=== PATIENT | female | born 1935 | race Caucasian/White ===

== ENCOUNTER 2016-06-18 15:36 | Inpatient (IN) | payer MEDICARE ==
[~2016-06-18] VITALS: Ht 172.7 cm; Wt 92.9 kg
[~2016-06-18 15:36] MED LIST: ALEV220C; ASPI-110 PO; LOSA25TA PO; LYRI75CA PO; MULT1CHW70
[2016-06-19] MEDS ORDERED: SODIUM CHLORID 0.9% 500 ML INJ 500 ML IV ONE (12:00)
[2016-06-19] MEDS ORDERED: PHENYLEPH/NS 1000 MCG/10 ML SYR IV ONE (12:00)
[2016-06-19] MEDS ORDERED: ONDANSETRON HCL 4 MG/2 ML VIAL IV PUSH ONE (12:00)
[2016-06-19] MEDS ORDERED: LACTATED RINGER'S 1000 ML INJ 1,000 ML IV ONE (12:00)
[2016-06-19] MEDS ORDERED: NEOSTIGMINE 3 MG/3 ML SYR IV ONE (12:00)
[2016-06-19] MEDS ORDERED: SODIUM CHLOR 0.9% 250 ML INJ 250 ML IV ONE (12:00)
[2016-06-19] MEDS ORDERED: PROPOFOL 200 MG/20 ML AMP IV ONE (12:00)
[2016-06-19] MEDS ORDERED: ePHEDrine/NS 25 MG/5 ML SYR IV ONE (12:00)
[2016-06-19 12:50] VITALS: BP 188/79; PULSE 73; RESP 16; TEMP 98.1; O2SAT 99
[2016-06-19] MEDS ORDERED: red rice (12:50)
[2016-06-19] MEDS ORDERED: CO Q10CA (12:51)
[2016-06-19] MEDS ORDERED: THROMBIN (TOPICAL) 5,000 UNIT VIAL ONE ×2 (13:02→13:13)
[2016-06-19] MEDS ORDERED: GELFOAM SIZE 100 ONE (13:02)
[2016-06-19] MEDS ORDERED: LIDOCAINE 1%/EPINEPHrine 1:100,000 SOLN 30 ML VIAL ONE (13:04)
[2016-06-19] MEDS ORDERED: BUPIVACAINE HCL PF 0.5% 30 ML VIAL ONE (13:13)
[2016-06-19] MEDS ORDERED: GENTAMICIN SULFATE 80 MG/2 ML VIAL ONE (13:14)
[2016-06-19] MEDS ORDERED: VANCOMYCIN HCL 1000 MG VIAL ONE (13:45)
[2016-06-19] MEDS ORDERED: ceFAZolin 2 GM PREMIX 50 ML ONE (13:45)
[2016-06-19] MEDS ORDERED: SODIUM CHLOR 0.9% 250 ML INJ 250 ML ONE (13:48)
[2016-06-19] MEDS ORDERED: SODIUM CHLORID 0.9% 500 ML IV SCH (14:00)
[2016-06-19] MEDS ORDERED: INSULIN HUMAN REGULAR 1,000 UNITS/10 ML VIAL SQ PRN (14:00)
[2016-06-19] MEDS ORDERED: METOPROLOL TARTRATE 25 MG TAB PO PRN (14:00)
[2016-06-19] MEDS ORDERED: LACTATED RINGER'S 1000 ML IV SCH (14:00)
[2016-06-19] MEDS ORDERED: ACETAMINOPHEN 1000 MG/100 ML VIAL IV ONE (14:15)
[2016-06-19] MEDS ORDERED: ARTIFICIAL TEARS OPTH OINT 3.5 APPLIC/3.5 GM TUBO ONE (14:16)
[2016-06-19] MEDS ORDERED: fentaNYL CITRATE 250 MCG/5 ML AMP ONE ×2 (14:16→19:56)
[2016-06-19] MEDS ORDERED: MIDAZOLAM HCL 2 MG/2 ML VIAL ONE (14:16)
[2016-06-19 17:55] LABS: BLOOD GAS BASE EXCESS -1.1 mmol/L (-2-2); BLOOD GAS CARBOXYHEMOGLOBIN 1.6 % (0-4); BLOOD GAS HCO3 23 mmol/L (22-26); BLOOD GAS METHEMOGLOBIN 1.1 % (0-2); BLOOD GAS O2 HGB SATURATION 97 % (90-100); BLOOD GAS OXYGEN CONTENT 15.2 Vol % (12.0-20.0); BLOOD GAS PCO2 36 mmHg (38-42); BLOOD GAS PO2 246 mmHg (61-120); BLOOD GAS TOTAL HGB 10.7 G/DL (12.0-16.0); CRITICAL VALUE NO; DRAW SITE ALINE; OXYGEN DEVICE O.R.; STAT YES; TEMP CORR TO 98.6
[2016-06-19 18:35] LABS: BLOOD GAS BASE EXCESS -0.9 mmol/L (-2-2); BLOOD GAS CARBOXYHEMOGLOBIN 1.7 % (0-4); BLOOD GAS HCO3 23 mmol/L (22-26); BLOOD GAS O2 HGB SATURATION 97 % (90-100); BLOOD GAS OXYGEN CONTENT 14.7 Vol % (12.0-20.0); BLOOD GAS PCO2 37 mmHg (38-42); BLOOD GAS PO2 243 mmHg (61-120); BLOOD GAS TOTAL HGB 10.4 G/DL (12.0-16.0); CRITICAL VALUE NO; DRAW SITE ALINE; FIO2 59 %; OXYGEN DEVICE O.R. GAS; STAT YES; TEMP CORR TO 98.6
[2016-06-19 18:43] LABS: HEMATOCRIT 30.6 % (35.0-46.0); REVIEW FLAG FINAL
[2016-06-19] MEDS ORDERED: NALOXONE HCL 0.4 MG/ML AMP IV PRN (19:30)
[2016-06-19] MEDS ORDERED: diphenhydrAMINE HCL 50 MG/ML VIAL IV PRN (19:30)
[2016-06-19] MEDS ORDERED: MORPHINE SULFATE 4 MG/ML INJ IV PUSH PRN ×2 (19:30)
[2016-06-19] MEDS ORDERED: ACETAMINOPHEN 325 MG TAB PO PRN (19:30)
[2016-06-19] MEDS ORDERED: SODIUM CHLORIDE 0.9% FLUSH 5 ML FLUSH IVF PRN (19:30)
--- NOTE | 2016-06-19 19:31 | PD.OP ---
Operative Report Date of Surgery: Jun 19, 2016 Preoperative Diagnosis: L3-4, L4-5 spondylolisthesis causing severe secondary stenosis Postoperative Diagnosis: L3-4, L4-5 spondylolisthesis causing severe secondary stenosis Procedure: L3-4, L4-L5 laminectomy, interbody arthrodhesis using PEEK cage and autologous bone graft, L3-4, L4-L5 instrumental fixation using transpedicular screws and rods, L3-4, L4-L5 posterolateral fusion using autologous bone graft and demineralized bone matrix. Microsurgical dissection Anesthesia: general Surgeon: Tim Loo Proof Coins Inspector(s): raymond munoz Operation and Findings: INDICATIONS FOR THE SURGICAL PROCEDURE Mr Cheng is a 81 year-old female who presented with intractable mechanical back pain and purvi evidence of L4 and L5 lower extremity radiculopathy. She had spondylolisthesis and severe stenosis, and failed maximum nonsurgical management including multiple modalities of conservative treatment as well as pain management interventions by an interventional pain specialist. A surgical decompression and arthrodhesis were indicated as a last resort. The [id number] details of the procedure, indications, alternatives, risks and potential complications were fully discussed with the patient. The patient fully understood. All the questions were answered. No guarantees were given. He voiced requesting the procedure and provided informed consents. He was offered the alternative of delaying the procedure and continuing with nonsurgical management. DETAILS OF THE SURGICAL PROCEDURE Prior to the procedure, the procedure, risks, and potential complications revisited with the patient. Placement of electrodes for intraoperative neurophysiological monitoring was completed. The patient was taken to the operative room, and following induction of general anesthesia, endotracheal intubation was performed. A Ngo catheter, bilateral ASAF hose and sequential compression devices were placed and kept throughout the procedure. The patient was positioned prone, over a Malcolm table over a bolsters. All pressure in the preoperative surgical holding room points were carefully padded with eggcrate and gel mattress. The eyes were tapped shut after ointment was applied by the anesthesiologist to prevent corneal abrasion. A Tomasa hugger was placed over the expossed lower body to maintain control of the core body temperature. The electrophysiological team placed the needles and electrodes in their proper location and baseline SSEP's and motor evoked potentials were registered. The entrance to each pedicles was marked using a C arm. The lumbar region was prepped and draped in the usual sterile fashion. The surgical procedure was performed in several steps as follow: SURGICAL APPROACH Once the patient was positioned, a localizing cross-table lateral and AP x-ray was performed with a C-arm. Two paramedian small incisions were outlined on the skin approximately 3cm from the midline. The skin incisions were made with a # 10 blade. Small bleeders were controlled with the cautery. The dissection was then carried out into deeper planes and through the thoracolumbar fascia with a Bovie. The intermuscular septum was identified and the muscles were blunted dissected along the septum. The facets and transverse process of L3-4, L4,5 were exposed and the proper anatomical landmarks were identidied. A microsurgical self-retaining retractor was placed on the incision, and a localizing lateralizing cross-table x-ray was performed with an instrument underneath a lamina of the lumbar spine. INSTRUMENTAL FIXATION At this point in the procedure, placement of bilateral transpedicular screws was necessary for stabilization of the spine. Initially, the entry point for the screw was selected anatomically at the junction of the facet, with the transverse process, and the pars interarticularis at L3-4, L4,5. This was started with a Giamshetti needle, followed by the use of K wire. A tap was used to create the threads for the screws. Finally bilateral transpedicular screws were carefully placed bilaterally at L3, L4, and L5 under fluoroscopic visualization. An appropriate purchase was achieved with all screws. The position of each screw was assessed anatomically with an AP, lateral, oblique Xrays. An intraoperative scan view of the spine was then performed using the iso -centric c-arm. Each screw was then assessed electrophysiologically stimulating each screw with a nerve stimulator. SURGICAL DECOMPRESSION There was significant mass effect with compression of the neural structures. In order to relieve neural compression, it was necessary to perform a decompressive laminectomy, with decompression of the spinal canal and bilateral lateral recesses. Note that the scope of such decompression was significantly more extensive than the minimal exposure necessary to perform an interbody fusion, as there was extreme facet arthropathy with severe degeneration of the disk spaces and stenosis cause by the hyperthrophic joint facets. At this point of the procedure the operative microscope was draped in the usual sterile fashion and brought to the field. The rest of the surgical procedure was performed using microdissection technique with the exception of the closure. Under the operating microscope, a decompressive laminectomy was carried out at L3-4, L4,5 as follow: The laminae, base of the spinous processes and facets were carefully drilled exposing the ligamentum flavum. The facets were abnormal with severe spondylolisthesis and gross mechanical instability. A large disk protusion was compressing the neural structures and exiting nerve roots. A near complete facetectomy was necessary resulting in further mechanical instability. The ligamentum flavum appeared hypertrophic, resulting on mass effect on the dorsal surface of the neural structures. The superior free border of the ligamentum flavum was elevated with a ligament dissector and the ligamentum flavum was removed with a 3 and 4 mm Kerrison forceps. The ligament was very adherent to the dural sac and during the dissection, ans extreme care was taken during the dissection. The exiting nerve roots were identified, and a wide foraminotomy was performed with a Kerrison in their trajectory towards the neural foramen. Epidural veins located laterally to the dural sac were coagulated with the bipolar cautery, and then incised using microscissors. Gentle medial retraction of the dural sac allowed me to expose the disc space for the discectomy. Upon completion of the discectomy, an excellent decompression of the neural structures was achieved. Increased motion was noted thorough the procedure, which was consistent with mechanical instability at L3-4, L4,5. INTERBODY ARTHRODHESIS In order to correct the narrowing of the disk space and maintain distraction of the space, and to achieve a solid interbody fusion, it was necessary the insertion of an interbody device into the disk space. Otherwise, the disk space would collapse, compromising the result of the surgical procedure. At this point of the procedure, the annulus fibrosus of the disk was carefully coagulated with a bipolar cautery and incised using an 11 bladed knife. Then, a microdiscectomy was carried out in a standard fashion using a combination of straight and up-biting pituitary forceps. A reverse angle curette was applied underneath the posterior longitudinal ligament, and used to push the disk fragments into the disk space, so they can be safely removed with a pituitary forceps. Once the discectomy was completed, it was necessary to decorticate the endplates, in order to eliminate the cartilaginous endplate and to expose healthy bone appropriate to perform the interbody fusion. The endplates at L3-4 , L4,5 were then thoroughly decorticated using increasing size bone chago and ring curets, eliminating the cartilaginous fragments from both, the superior and inferior endplates. A disk space distractor was applied to the pedicle screws and gentle distraction was applied. This maneuver was assisted by the use of a disk distractor. Increased motility was noted at the disk, which was consistent with instability due to facet arthropathy. Once a thorough preparation of the disk space was achieved, the disk space was irrigated with antibiotic solution, and the interbody fusion was performed by carefully impacting PPEK cages filled with autologous iliac crest bone graft. The use of several shoe impactors with different angulation, allowed me for an excellent, proper position of the interbody cages L3-4 and L4,5. A solid position of the cage with good purchase was achieved. The position of the cages were assessed anatomically with a probe and radiologically with the C-arm. POSTEROLATERAL FUSION The posterolateral fusion is a critical component to the procedure, to prevent future fatigue and failure of the instrumental fixation. Initially, the transverse processes of the vertebral bodies, lateral surface of the facets and the lateral gutters of the spine were carefully cleaned, eliminating all soft tissue and muscle attachments. The area was then irrigated with a large amount of antibiotic solution. Subsequently, the transverse processes, lateral surface of the facets, and lateral gutters of the spine were thoroughly decorticated using the TPS drill with a 5mm cutting becky, exposing cancellous bone, in preparation for the posterolateral fusion. The incision was again irrigated with antibiotic solution. Then, the posterolateral fusion was then performed by carefully packing the lateral gutters of the spine at L3-4, L4,5 with autologous iliac crest bone combined with demineralized bone matrix. I packed as much bone as possible. COMPLETION OF THE INSTRUMENTATION AND CLOSURE The rods were brought to the field, applied to all the screws, and the screw caps were sequentially applied. Compression was performed between the pedicle screws, and final tightening of the screws was completed using a torque wrench. The incision was again thoroughly irrigated with several liters of antibiotic solution, and hemostasis secured with the bipolar cautery. A Valsalva Maneuver performed by the anesthesiologist failed to show any evidence of cerebrospinal fluid leak or bleeding. A 7 mm Malcolm-Oliver drain was left in the epidural space and externalized through a separate stab incision. The incision was then closed in planes. 0 Vicryl was used in an interrupted fashion to close the thoracolumbar fascia and the superficial fascia. The subcutaneous tissue was then approximated using 3-0 Vicryl in an interrupted fashion. Special care was taken to avoid space. The skin was then closed with 4-0 Vicryl in a running, subcuticular fashion. Dermabond was applied to the skin. Each plane of closure was irrigated with antibiotic solution. At the end of the procedure the sponge, needle and instrument counts were all correct. Estimated blood loss was 600 cc. No blood transfusion was given. The entire procedure was performed using continuous electrophysiological monitoring of the somatosensorial evoked potentials and EMG. The patient received prophylactic antibiotics. The patient was then extubated and transferred to the recovery room in stable condition. Tim Loo MD Jun 19, 2016 19:31
[2016-06-19] MEDS ORDERED: DO NOT ADM ANY ANTICOAGULANT DRUGS XX PRN (19:44)
[2016-06-19] MEDS: NS + KCL 20 MEQ INJ 1,000 ML IV SCH (20:00)
[2016-06-19 20:26] LABS: AUTOMATED NEUTROPHIL # 10.7 TH/MM3 (1.8-7.7); BASOPHIL % 0.2 % (0.0-2.0); EOSINOPHIL % 0.4 % (0.0-4.0); HEMATOCRIT 32.2 % (35.0-46.0); HEMO FLAGS DIFF FINAL; LYMPH % 7.3 % (9.0-44.0); LYMPHOCYTE # 0.9 TH/MM3 (1.0-4.8); MEAN CELL VOLUME 89.2 FL (80.0-100.0); MEAN CORPUSCULAR HEMOGLOBIN 29.4 PG (27.0-34.0); MONO % 2.4 % (0.0-8.0); NEUT % 89.7 % (16.0-70.0); PLATELET COUNT 163 TH/MM3 (150-450); RED BLOOD COUNT 3.61 MIL/MM3 (4.00-5.30); RED CELL DISTRIBUTION WIDTH 14.1 % (11.6-17.2); WHITE BLOOD COUNT 11.9 TH/MM3 (4.0-11.0)
[2016-06-19] MEDS ORDERED: RESP: ALBUTEROL 2.5 MG/3 ML NEB (PRN) ONE (20:50)
[2016-06-19 20:58] LABS: POTASSIUM 3.9 MEQ/L (3.5-5.1)
--- NOTE | 2016-06-19 21:11 | PD.CONS ---
[facility] Service Critical Care Medicine Consult Requested By Dr. Loo Reason for Consult Critical Care Management Primary Care Physician Olivia Delcid M.D. History of Present Illness 81 y/o woman with long-standing L3-4, L4-5 spondylolisthesis and canal stenosis causing lower extremity radiculopathy. Underwent decompression and reconstruction of lumbar spine today. Review of Systems ROS No chest pain or SOB. Past Family Social History Allergies: Coded Allergies: Erythromycins (Verified Allergy, Severe, 06/19/16) Past Medical History Aspirin (Aspirin 325 mg) 325 Mg Tab 325 MG PO DAILY TAB Losartan Potassium 25 MG (Losartan Potassium 25 MG) 25 Mg Tab 25 MG PO DAILY #30 TAB Multiple Vitamin (Multivitamin) 1 Tab Tab 1 TAB PO DAILY Ref 0 Naproxen Sodium (Aleve) 220 Mg Tab 442 MG PO BID PRN PAIN SCALE 1 TO 10 TAB Pregabalin (Lyrica) 75 Mg Cap MG PO BID Physical Exam Vital Signs Vital Signs Date Time Temp Pulse Resp B/P Pulse Ox O2 Delivery O2 Flow Rate FiO2 06/19/16 19:45 97.6 97 14 132/63 97 Simple Mask 8 06/19/16 12:50 98.1 73 16 188/79 99 Physical Exam PE: P 97, BP 132/63, R 18, Sats 93% Head: Normal. Neck: Chronically stiff. Airway widely patent. No snoring or stridor. Lungs: Clear, depth of excursions normal. No wheezes or crackles. Good bilateral air entry. Heart; NL S1S2, RRR, no m,r. No JVD. Abdomen: Soft, no guarding. BS active. Extremities: Warm, well perfused. Neuro: Sleepy. Wiggles toes and fingers to command. Protects airway. Conversant. Laboratory Laboratory Tests Test 06/19/16 06/19/16 06/19/16 06/19/16 12:55 13:00 17:45 18:22 Blood Type O NEGATIVE O NEGATIVE Antibody Screen NEGATIVE Crossmatch Leukocyte-Reduced Red Blood Cells Blood Bank Comment Blood Gas Puncture Site LICHA HURT Blood Gas Patient Temperature 98.6 98.6 Blood Gas HCO3 23 23 Blood Gas Base Excess -1.1 -0.9 Blood Gas Oxygen Saturation 97 97 Arterial Blood pH 7.42 7.41 Arterial Blood Partial 36 37 Pressure CO2 Arterial Blood Partial 246 243 Pressure O2 Arterial Blood Oxygen Content 15.2 14.7 Arterial Blood 1.6 1.7 Carboxyhemoglobin Arterial Blood Methemoglobin 1.1 1.0 Blood Gas Hemoglobin 10.7 10.4 Oxygen Delivery Device O.R. O.R. GAS Hemoglobin 10.3 Hematocrit 30.6 Blood Gas Inspired Oxygen 59 Test 06/19/16 19:56 White Blood Count 11.9 Red Blood Count 3.61 Hemoglobin 10.6 Hematocrit 32.2 Mean Corpuscular Volume 89.2 Mean Corpuscular Hemoglobin 29.4 Mean Corpuscular Hemoglobin 33.0 Concent Red Cell Distribution Width 14.1 Platelet Count 163 Mean Platelet Volume 8.7 Neutrophils (%) (Auto) 89.7 Lymphocytes (%) (Auto) 7.3 Monocytes (%) (Auto) 2.4 Eosinophils (%) (Auto) 0.4 Basophils (%) (Auto) 0.2 Neutrophils # (Auto) 10.7 Lymphocytes # (Auto) 0.9 Monocytes # (Auto) 0.3 Eosinophils # (Auto) 0.0 Basophils # (Auto) 0.0 CBC Comment DIFF FINAL Differential Comment Result Diagram: 06/19/161955 Assessment and Plan Problem List: (1) Acute respiratory insufficiency, postoperative ICD Code: J95.89 Status: Acute (2) Lumbar stenosis with neurogenic claudication ICD Code: M48.06 Status: Acute Assessment and Plan Plan: 1. HOB elevated 30 degrees. 2. Decrease dilaudid pump to 0.2 mg bolus. 3. Airway precautions. 4. Protonix. 5. Hold chemical DVT px. 6. SCDs. 7. Maintenance iv. 8. Hold ARB today, restart a.m. 9. ABG now. Overall impression: Stable hemodynamics status s/p lumbar spine decompression and reconstruction. Follow level of lethargy closely. Vasquez Bailey MD Jun 19, 2016 21:10
[2016-06-19 21:20] VITALS: O2SAT 96
[2016-06-19 21:25] LABS: CALCIUM-PROTEIN CORRECTED 8.2 MG/DL (8.5-10.1)
[2016-06-19] MEDS ORDERED: LABETALOL HCL 100 MG/20 ML VIAL IV PUSH PRN (21:30)
[2016-06-19] MEDS: SODIUM CHLORIDE 0.9% FLUSH 5 ML FLUSH IVF SCH (21:30)
[2016-06-19] MEDS: HYDROmorphone HCL PCA 6 MG/30 ML IV SCH ×2 (21:31→22:26)
[2016-06-19 21:32] LABS: BLOOD GAS BASE EXCESS -4.4 mmol/L (-2-2); BLOOD GAS CARBOXYHEMOGLOBIN 1.6 % (0-4); BLOOD GAS HCO3 20 mmol/L (22-26); BLOOD GAS METHEMOGLOBIN 1.1 % (0-2); BLOOD GAS O2 HGB SATURATION 95 % (90-100); BLOOD GAS OXYGEN CONTENT 14.1 Vol % (12.0-20.0); BLOOD GAS PCO2 35 mmHg (38-42); BLOOD GAS PO2 92 mmHg (61-120); BLOOD GAS TOTAL HGB 10.5 G/DL (12.0-16.0); CRITICAL VALUE NO; DRAW SITE ART LINE; FIO2 35 %; LITER FLOW 6 L/M; OXYGEN DEVICE Venti Mask; STAT NO; TEMP CORR TO 98.6
[2016-06-19] MEDS: PCA - TOTAL MG DILAUDID DELIVERED PER SHIFT SCH (22:00)
[2016-06-19] MEDS: ceFAZolin 2 GM PREMIX 50 ML IV SCH (22:05)
--- NOTE | 2016-06-19 22:31 | RADRPT ---
EXAM DATE/TIME: 06/19/2016 18:20 [facility] COMPARISON: No previous studies available for comparison. INDICATIONS : Lumbar fusion, L3-4, 4-5. MEDICAL HISTORY : Unobtainable. SURGICAL HISTORY : Unobtainable. ENCOUNTER: Initial ACUITY: 1 day PAIN SCORE: Non-responsive. LOCATION: Lumbar. FINDINGS: CONCLUSION: Fluoroscopic images demonstrates placement of posterior rods and screws from L3-L5. Intervertebral di sc devices. Sai Faustin MD on June 19, 2016 at 22:29 Board Certified Radiologist. This report was verified electronically.
[2016-06-19 23:40] VITALS: BP 120/56; PULSE 68; RESP 13; TEMP 97.9
[2016-06-20] VITALS (9 sets, daily range): BP systolic 98–139; BP diastolic 41–63; PULSE 64–82; RESP 12–19; TEMP 96.8–98.3; O2SAT 94–100
[2016-06-20 05:33] LABS: AUTOMATED NEUTROPHIL # 12.3 TH/MM3 (1.8-7.7); BASOPHIL % 0.1 % (0.0-2.0); HEMATOCRIT 29.8 % (35.0-46.0); HEMO FLAGS DIFF FINAL; LYMPH % 3.4 % (9.0-44.0); LYMPHOCYTE # 0.4 TH/MM3 (1.0-4.8); MEAN CELL VOLUME 88.4 FL (80.0-100.0); MEAN CORPUSCULAR HGB CONC 33.9 % (32.0-36.0); NEUT % 93.5 % (16.0-70.0); PLATELET COUNT 165 TH/MM3 (150-450); RED BLOOD COUNT 3.38 MIL/MM3 (4.00-5.30); WHITE BLOOD COUNT 13.2 TH/MM3 (4.0-11.0)
[2016-06-20] MEDS: PCA - TOTAL MG DILAUDID DELIVERED PER SHIFT SCH ×3 (05:47→20:35)
[2016-06-20] MEDS: ceFAZolin 2 GM PREMIX 50 ML IV SCH ×2 (05:48→13:43)
[2016-06-20] MEDS: NS + KCL 20 MEQ INJ 1,000 ML IV SCH (05:49)
--- NOTE | 2016-06-20 05:53 | HHI.CCPN ---
Subjective Remarks/Hospital Course 81 y/o woman with long-standing L3-4, L4-5 spondylolisthesis and canal stenosis causing lower extremity radiculopathy. Underwent decompression and reconstruction of lumbar spine today. Subjective 06/20: Continues to be on 5 L nasal cannula. Remote tobacco use noted. Chest x- ray this a.m. pending. Appears comfortable in no respiratory distress. Afebrile Objective Vital Signs Date Time Temp Pulse Resp B/P Pulse Ox O2 Delivery O2 Flow Rate FiO2 06/20/16 05:47 20 06/20/16 04:00 65 06/20/16 04:00 97.7 98/41 06/20/16 00:00 96 Nasal Cannula 5.00 06/19/16 22:00 35 Intake and Output 06/19/16 06/19/16 06/20/16 08:00 16:00 00:00 Intake Total 5265 ml Output Total 2110 ml Balance 3155 ml Result Diagram: 06/20/16 0445 06/19/16 1956 Imaging Last Impressions Lumbar Spine X-Ray 06/19/16 0000 Signed Impressions: Service Date/Time: Sunday, June 19, 2016 18:20 - CONCLUSION: Fluoroscopic images demonstrates placement of posterior rods and screws from L3-L5. Intervertebral disc devices. Sai Faustin MD Objective Remarks GENERAL: 81-year-old female, critically ill currently resting in bed in no acute distress nasal cannula SKIN: Warm and dry. No rash HEAD: Atraumatic. Normocephalic. EYES: Pupils equal and round. No scleral icterus. No injection or drainage. ENT: No nasal bleeding or discharge. Mucous membranes pink and moist. NECK: Trachea midline. No JVD. CARDIOVASCULAR: Regular rate and rhythm. S1, S2. No S4. Without murmur RESPIRATORY: Essentially clear to auscultation bilaterally without wheezes rales or rhonchi GASTROINTESTINAL: Abdomen soft, non-tender, nondistended. Active bowel sounds are appreciated MUSCULOSKELETAL: Extremities without significant peripheral edema. No obvious deformities. NEUROLOGICAL: Awake and alert. No obvious cranial nerve deficits. Motor grossly within normal limits. Five out of 5 muscle strength in the arms and legs. Normal speech. PSYCHIATRIC: Appropriate mood and affect; insight and judgment normal. A/P Problem List: (1) Acute respiratory insufficiency, postoperative ICD Code: J95.89 Status: Acute (2) Lumbar stenosis with neurogenic claudication ICD Code: M48.06 Status: Acute Assessment and Plan Neuro/Psych: Postop day #1L3-4, L4-L5 laminectomy, interbody arthrodhesis using PEEK cage and autologous bone graft, L3-4, L4-L5 instrumental fixation using transpedicular screws and rods, L3-4, L4-L5 posterolateral fusion using autologous bone graft and demineralized bone matrix. Microsurgical dissection secondary to severe lumbar stenosis History of CVA/TIA Chronic headaches Peripheral neuropathy Allergic rhinitis Utilize Dilaudid TROMMEL TENDER for pain management Acetaminophen for fever Currently on Lyrica 75 mg by mouth daily for peripheral neuropathy. Dosage at home not clear. Documentation of 25 mg daily and 75 mg twice a day Neuro checks per protocol CV: Hypertension Continue Cozaar at 25 mill grams by mouth daily for hypertension Currently normal saline with 20 mEq KCl 100 cc an hour. Will remove potassium is currently 4.9 on BMP this a.m. Currently not requiring antihypertensives and/or vasopressors Resp: Acute respiratory insufficiency Prior tobaccoism Nasal cannula to maintain saturations greater than equal to 92% Incentive spirometry while awake As needed bronchodilator therapy A.m. chest x-ray pending GI: Patient is currently nothing by mouth. Protonix for GI prophylaxis : Ngo if indicated for accurate I's and O's in a critically ill patient Endo: History of nodular thyroid disease status post thyroidectomy Currently not on any thyroid medications Sliding-scale insulin if indicated Renal: Creatinine currently within normal limits Currently on normal saline with 20 mEq KCl 100 cc an hour Heme: History of skin cancer Leukocytosis Normocytic anemia Monitor CBC daily. Monitor trends ID: Currently on Ancef 2 g IV every 8 hours 3 dosages. Per neurosurgery Received vancomycin and gentamicin preoperatively MSK: PT evaluate and treat FEN: Replace electrolyte as clinically indicated Access - Utilize peripheral IV. Central line if indicated Prophylaxis - GI - Protonix - DVT - SCD/pharmacological prophylaxis when okayed by neurosurgery Critical Care: The total critical care time was 45 minutes. Time to perform other separately billable procedures was not included in the critical care time. Addison Willett MD Jun 20, 2016 05:53
[2016-06-20 05:56] LABS: BICARBONATE 22.2 MEQ/L (21.0-32.0); POTASSIUM 4.9 MEQ/L (3.5-5.1)
[2016-06-20] MEDS: SODIUM CHLOR 0.9% 1000 ML INJ 1,000 ML IV SCH ×2 (06:00→18:24)
[2016-06-20 06:21] LABS: CALCIUM-PROTEIN CORRECTED 8.3 MG/DL (8.5-10.1)
[2016-06-20] MEDS: SODIUM CHLORIDE 0.9% FLUSH 5 ML FLUSH IVF SCH ×2 (09:00→20:35)
[2016-06-20] MEDS: LOSARTAN 25 MG TAB PO SCH (09:00)
--- NOTE | 2016-06-20 09:11 | RADRPT ---
EXAM DATE/TIME: 06/20/2016 08:02 [facility] COMPARISON: CHEST PA & LAT, November 14, 2015, 12:03. INDICATIONS : Hypoxia MEDICAL HISTORY : None. SURGICAL HISTORY : None. ENCOUNTER: Initial ACUITY: 2 days PAIN SCORE: 0/10 LOCATION: Bilateral chest FINDINGS: There is minimal linear atelectasis or scarring at the left lung base. No focal consolidation or effu lety. Heart size upper limits normal. Atherosclerotic and tortuous aorta. Previous fusion lower cervi dafne spine. CONCLUSION: 1. No focal consolidation or effusion. Minimal linear atelectasis or scarring at the left lung base. Vladimir Eden MD on June 20, 2016 at 9:08 Board Certified Radiologist. This report was verified electronically.
[2016-06-20] MEDS: PREGABALIN 75 MG CAP PO SCH (09:22)
[2016-06-20] MEDS: PANTOPRAZOLE SODIUM 40 MG VIAL IVP SCH (09:22)
[2016-06-20] MEDS ORDERED: ONDANSETRON HCL 4 MG/2 ML VIAL ONE (09:23)
[2016-06-20] MEDS ORDERED: ONDANSETRON HCL 4 MG/2 ML VIAL IV PRN (09:30)
[2016-06-20] MEDS ORDERED: RESP: ALBUTEROL 2.5 MG/IPRATROPIUM 0.5 MG NEB (PRN) INH (09:30)
[2016-06-20] MEDS: HYDROmorphone HCL PCA 6 MG/30 ML IV SCH (09:33)
[2016-06-20] MEDS ORDERED: CALCIUM GLUCONATE INJ 1 GM in SODIUM CHLORIDE 0.9% INJ 100 ML IV ONE (10:00)
--- NOTE | 2016-06-20 10:09 | HHI.NSPN ---
(Marcelle Britton) Note Status Status: Progress Note (Marcelle Britton) Interval History Interval History Ms. Stephenson is a 81 year old female who underwent a L3-4, L4-L5 laminectomy, interbody arthrodesis using PEEK cage and autologous bone graft, L3-4, L4-L5 instrumental fixation using transpedicular screws and rods on 06/19/16. 3: POD 1, doing well, stable overnight in [facility]SC. (Marcelle Britton) Labs, Micro, & Vital Signs Results Date Time Temp Pulse Resp B/P Pulse Ox O2 Delivery O2 Flow Rate FiO2 06/20/16 09:45 96 Nasal Cannula 2.00 06/20/16 09:33 16 06/20/16 09:00 97.7 64 12 110/54 95 Arterial Line 06/20/16 09:00 95 Nasal Cannula 4.00 06/20/16 08:00 64 06/20/16 06:00 67 06/20/16 05:47 20 06/20/16 04:00 65 06/20/16 04:00 97.7 98/41 06/20/16 00:00 97.9 116/56 06/20/16 00:00 68 06/20/16 00:00 96 Nasal Cannula 5.00 06/19/16 23:40 97.9 68 13 120/56 06/19/16 23:00 97.4 64 17 114/54 95 Nasal Cannula 3 130/56 06/19/16 22:26 10 06/19/16 22:00 65 13 108/57 98 Venturi Mask 35 126/54 06/19/16 22:00 13 06/19/16 21:31 14 06/19/16 21:30 86 10 121/53 91 Venturi Mask 35 06/19/16 21:20 96 Venturi Mask 6.00 35 06/19/16 21:00 65 10 107/58 98 Venturi Mask 35 122/55 06/19/16 20:45 97.5 88 14 127/53 93 06/19/16 20:30 78 1 108/63 91 Simple Mask 5 06/19/16 20:15 72 13 114/59 95 Simple Mask 5 06/19/16 20:00 71 14 107/54 98 Simple Mask 5 06/19/16 19:45 97.6 97 14 132/63 97 Simple Mask 8 06/19/16 12:50 98.1 73 16 188/79 99 06/20/16 07:00 Intake Total 6186 ml Output Total 2625 ml Balance 3561 ml Constitutional Vital Signs Date Time Temp Pulse Resp B/P Pulse Ox O2 Delivery O2 Flow Rate FiO2 06/20/16 09:45 96 Nasal Cannula 2.00 06/20/16 09:33 16 06/20/16 09:00 97.7 64 12 110/54 95 Arterial Line 06/20/16 09:00 95 Nasal Cannula 4.00 06/20/16 08:00 64 06/20/16 06:00 67 06/20/16 05:47 20 06/20/16 04:00 65 06/20/16 04:00 97.7 98/41 06/20/16 00:00 97.9 116/56 06/20/16 00:00 68 06/20/16 00:00 96 Nasal Cannula 5.00 06/19/16 23:40 97.9 68 13 120/56 06/19/16 23:00 97.4 64 17 114/54 95 Nasal Cannula 3 130/56 06/19/16 22:26 10 06/19/16 22:00 65 13 108/57 98 Venturi Mask 35 126/54 06/19/16 22:00 13 06/19/16 21:31 14 06/19/16 21:30 86 10 121/53 91 Venturi Mask 35 06/19/16 21:20 96 Venturi Mask 6.00 35 06/19/16 21:00 65 10 107/58 98 Venturi Mask 35 122/55 06/19/16 20:45 97.5 88 14 127/53 93 06/19/16 20:30 78 1 108/63 91 Simple Mask 5 06/19/16 20:15 72 13 114/59 95 Simple Mask 5 06/19/16 20:00 71 14 107/54 98 Simple Mask 5 06/19/16 19:45 97.6 97 14 132/63 97 Simple Mask 8 06/19/16 12:50 98.1 73 16 188/79 99 06/20/16 07:00 Intake Total 6186 ml Output Total 2625 ml Balance 3561 ml (Marcelle Britton) Review of Systems/Exam Exam Ms. Stephenson is alert, awake and oriented to time, place and person. Speech is fluent. Follows commands well. JO drain with 360 cc output overnight Cranial nerve examination: pupils to be equal, round and reactive to light. Facial motor symmetric. Neck is soft and supple with a good range of motion without pain. Muscle strength: 4/5 hip flexors, quads with surgical discomfort, 5/5 plantarflexion, dorsiflexion, EHL Bilateral plantar flexion response. (Marcelle Britton) Medications Current Medications Current Medications Medications (Trade) Dose Ordered Sig/Giovanni Route PRN Reason Start Time Stop Time Status Last Admin Dose Admin Sodium Chloride (NS 500 ml Inj) 500 ml @ 30 mls/hr [id number] IV 06/19/16 14:00 06/20/16 13:59 IV Flush (NS Flush) 2 ml UNSCH PRN IVF FLUSH AFTER USING IV ACCESS 06/19/16 19:30 IV Flush 2 ml 2 ml BID IVF 06/19/16 21:00 06/20/16 09:00 Cefazolin Sodium/ Dextrose (Ancef 2 Gm Premix) 50 ml @ 100 mls/hr Q8H IV 06/19/16 22:00 06/20/16 14:29 06/20/16 05:48 Pantoprazole Sodium (Protonix Inj) 40 mg DAILY IVP 06/20/16 09:00 06/20/16 09:22 Morphine Sulfate (Morphine Inj) 2 mg Q2H PRN IV PUSH PAIN SCALE 1 TO 6 06/19/16 19:30 Morphine Sulfate (Morphine Inj) 4 mg Q2H PRN IV PUSH PAIN SCALE 7 TO 10 06/19/16 19:30 Acetaminophen (Tylenol) 650 mg Q4H PRN PO TEMPERATURE > 101.5 F 06/19/16 19:30 Naloxone HCl (Narcan Inj) 0.4 mg UNSCH PRN IV RESPIRATORY RATE LESS THAN 10 06/19/16 19:30 Diphenhydramine HCl (Benadryl Inj) 25 mg Q6H PRN IV ITCHING 06/19/16 19:30 Hydromorphone HCl (Dilaudid TRAINING PROJECT MANAGER Inj) 6 mg UNSCH IV 06/19/16 19:30 06/20/16 09:33 TRAINING PROJECT MANAGER Dosage Infused (Pha) 1 Q8HR .XX 06/19/16 22:00 06/20/16 05:47 Losartan Potassium (Cozaar) 25 mg DAILY PO 06/20/16 09:00 Pregabalin (Lyrica) 75 mg DAILY PO 06/20/16 09:00 06/20/16 09:22 Miscellaneous Information ALL NURSING DEPARTME... UNSCH PRN XX SEE LABEL COMMENTS 06/19/16 19:44 06/20/16 19:43 Labetalol HCl 20 mg 20 mg Q3H PRN IV PUSH SBP > 160 06/19/16 21:30 Sodium Chloride (NS 1000 ml Inj) 1,000 ml @ 100 mls/hr Q10H IV 06/20/16 06:00 06/20/16 06:00 Artificial Tears (Tears Naturale Opth Soln) 1 drop TID EACH EYE 06/20/16 13:00 Ondansetron HCl (Zofran Inj) 4 mg Q6H PRN IV NAUSEA OR VOMITING 06/20/16 09:30 Docusate Sodium (Colace) 100 mg BID PO 06/20/16 21:00 Bisacodyl 10 mg 10 mg DAILY PRN PO CONSTIPATION 06/20/16 09:30 Calcium Gluconate/ Sodium Chloride (Calcium Gluconate Inj/NS Inj) 110 ml @ 110 mls/hr ONCE ONCE IV 06/20/16 10:00 06/20/16 10:59 (Marcelle Britton) Medical Decision Making MDM Remarks 81 y/o female s/p L3-4, L4-L5 laminectomy, interbody arthrodesis using PEEK cage and autologous bone graft, instrumental fixation using transpedicular screws and rods 06/19/16 (Marcelle Britton) Plan Plan Remarks cont TRAINING PROJECT MANAGER for pain control IS every hour PT, start mobilization up in chair today TLSO when out of bed start heart healthy diet stable for transfer out of unit to (Marcelle Britton) Attending Statement The exam, history, and the medical decision-making described in the above note were completed with the assistance of the mid-level provider. I reviewed and agree with the findings presented. I attest that I had a [id number] encounter with the patient on the same day, and personally performed and documented my assessment and findings in the medical record. (Tim Loo MD) Marcelle Britton Jun 20, 2016 10:09 Tim Loo MD Jun 21, 2016 18:50
[2016-06-20] MEDS: ARTIFICIAL TEARS OPTH SOLN 15 ML BTL EACH EYE SCH ×2 (13:00→18:00)
[2016-06-20] MEDS: DOCUSATE SODIUM 100 MG CAP PO SCH (20:35)
[2016-06-21] VITALS (8 sets, daily range): BP systolic 99–141; BP diastolic 48–98; PULSE 73–89; RESP 15–20; TEMP 95.6–99; O2SAT 92–99
[2016-06-21] MEDS: SODIUM CHLOR 0.9% 1000 ML INJ 1,000 ML IV SCH ×3 (02:00→21:43)
[2016-06-21] MEDS: PCA - TOTAL MG DILAUDID DELIVERED PER SHIFT SCH ×3 (06:00→21:42)
[2016-06-21] MEDS ORDERED: HYDR-3535 PO (09:14)
[2016-06-21] MEDS: PANTOPRAZOLE SODIUM 40 MG VIAL IVP SCH (09:28)
[2016-06-21] MEDS: SODIUM CHLORIDE 0.9% FLUSH 5 ML FLUSH IVF SCH ×2 (09:28→20:11)
[2016-06-21] MEDS: DOCUSATE SODIUM 100 MG CAP PO SCH ×2 (09:28→21:41)
[2016-06-21] MEDS: ARTIFICIAL TEARS OPTH SOLN 15 ML BTL EACH EYE SCH ×3 (09:28→16:15)
[2016-06-21] MEDS: PREGABALIN 75 MG CAP PO SCH (09:29)
[2016-06-21] MEDS: LOSARTAN 25 MG TAB PO SCH (09:29)
[2016-06-21 10:04] LABS: HEMATOCRIT 27.4 % (35.0-46.0); MEAN CELL VOLUME 89.9 FL (80.0-100.0); MEAN CORPUSCULAR HGB CONC 33.4 % (32.0-36.0); PLATELET COUNT 143 TH/MM3 (150-450); RED BLOOD COUNT 3.05 MIL/MM3 (4.00-5.30); RED CELL DISTRIBUTION WIDTH 14.7 % (11.6-17.2); REVIEW FLAG FINAL; WHITE BLOOD COUNT 9.6 TH/MM3 (4.0-11.0)
[2016-06-21 10:09] LABS: BICARBONATE 25.4 MEQ/L (21.0-32.0); POTASSIUM 4.2 MEQ/L (3.5-5.1)
[2016-06-21] MEDS: HYDROmorphone HCL PCA 6 MG/30 ML IV SCH (10:20)
[2016-06-21 10:23] LABS: CALCIUM-PROTEIN CORRECTED 8.2 MG/DL (8.5-10.1)
--- NOTE | 2016-06-21 10:46 | HHI.DCPOC ---
Discharge Care Plan Diagnosis: (1) Status post lumbar spinal fusion Goals to Promote Your Health * To prevent worsening of your condition and complications * To maintain your health at the optimal level Directions to Meet Your Goals Take your medications as prescribed Follow your dietary instruction Follow activity as directed Keep your appointments as scheduled Take your immunizations and boosters as scheduled If your symptoms worsen call your PCP, if no PCP go to Urgent Care Center or Emergency Room Smoking is Dangerous to Your Health. Avoid second hand smoke Call the 24-hour hour crisis hotline for domestic abuse at Marcelle Britton Jun 21, 2016 10:46
[2016-06-21] MEDS: ENOXAPARIN SODIUM 40 MG/0.4 ML SYRINGE SQ SCH (11:20)
--- NOTE | 2016-06-21 11:44 | HHI.NSPN ---
(Marcelle Britton) Note Status Status: Progress Note (Marcelle Britton) Interval History Interval History Ms. Stephenson is a 81 year old female who underwent a L3-4, L4-L5 laminectomy, interbody arthrodesis using PEEK cage and autologous bone graft, L3-4, L4-L5 instrumental fixation using transpedicular screws and rods on 06/19/16. 3: POD 1, doing well, stable overnight in [facility]. 06/21: POD 2, sat up in chair yesterday, she feels better today. denies chest pain, difficulty breathing, hemiparesis. (Marcelle Britton) Labs, Micro, & Vital Signs Results Date Time Temp Pulse Resp B/P Pulse Ox O2 Delivery O2 Flow Rate FiO2 06/21/16 10:20 16 06/21/16 08:00 97.2 76 17 110/60 99 06/21/16 08:00 3.00 06/21/16 06:00 19 06/21/16 04:08 97.6 74 18 122/60 96 06/21/16 00:09 96.0 74 18 123/98 98 06/20/16 20:35 19 06/20/16 20:30 96.8 76 19 112/56 94 06/20/16 16:00 82 06/20/16 16:00 98.3 82 15 139/63 96 06/20/16 14:00 12 06/20/16 12:00 70 06/20/16 12:00 97.7 70 16 109/53 100 06/21/16 07:00 Intake Total 2611 ml Output Total 1430 ml Balance 1181 ml Constitutional Vital Signs Date Time Temp Pulse Resp B/P Pulse Ox O2 Delivery O2 Flow Rate FiO2 06/21/16 10:20 16 06/21/16 08:00 97.2 76 17 110/60 99 06/21/16 08:00 3.00 06/21/16 06:00 19 06/21/16 04:08 97.6 74 18 122/60 96 06/21/16 00:09 96.0 74 18 123/98 98 06/20/16 20:35 19 06/20/16 20:30 96.8 76 19 112/56 94 06/20/16 16:00 82 06/20/16 16:00 98.3 82 15 139/63 96 06/20/16 14:00 12 06/20/16 12:00 70 06/20/16 12:00 97.7 70 16 109/53 100 06/21/16 07:00 Intake Total 2611 ml Output Total 1430 ml Balance 1181 ml (Marcelle Britton) Review of Systems/Exam Exam Ms. Stephenson is alert and oriented. Follows commands. Conversing well. JO drain with moderate serosanguineous output. Wound clean and dry. Cranial nerve examination: pupils 4 mm equal, round and reactive to light. Facial motor symmetric. Neck is soft and supple with a good range of motion without pain. Muscle strength: 4+/5 hip flexors, quads with surgical discomfort, 5/5 plantarflexion, dorsiflexion, EHL Bilateral plantar flexion response. Respiratory: nonlabored (Marcelle Britton) Medications Current Medications Current Medications Medications (Trade) Dose Ordered Sig/Giovanni Route PRN Reason Start Time Stop Time Status Last Admin Dose Admin IV Flush (NS Flush) 2 ml UNSCH PRN IVF FLUSH AFTER USING IV ACCESS 06/19/16 19:30 IV Flush (NS Flush) 2 ml BID IVF 06/19/16 21:00 06/21/16 09:28 Pantoprazole Sodium (Protonix Inj) 40 mg DAILY IVP 06/20/16 09:00 06/21/16 09:28 Acetaminophen (Tylenol) 650 mg Q4H PRN PO TEMPERATURE > 101.5 F 06/19/16 19:30 Naloxone HCl (Narcan Inj) 0.4 mg UNSCH PRN IV RESPIRATORY RATE LESS THAN 10 06/19/16 19:30 Diphenhydramine HCl (Benadryl Inj) 25 mg Q6H PRN IV ITCHING 06/19/16 19:30 Hydromorphone HCl (Dilaudid MANUFACTURING LEAD Inj) 6 mg UNSCH IV 06/19/16 19:30 06/21/16 10:20 MANUFACTURING LEAD Dosage Infused (Pha) 1 Q8HR .XX 06/19/16 22:00 06/21/16 06:00 Losartan Potassium (Cozaar) 25 mg DAILY PO 06/20/16 09:00 06/21/16 09:29 Pregabalin (Lyrica) 75 mg DAILY PO 06/20/16 09:00 06/21/16 09:29 Labetalol HCl 20 mg 20 mg Q3H PRN IV PUSH SBP > 160 06/19/16 21:30 Sodium Chloride (NS 1000 ml Inj) 1,000 ml @ 100 mls/hr Q10H IV 06/20/16 06:00 06/21/16 11:20 Artificial Tears (Tears Naturale Opth Soln) 1 drop TID EACH EYE 06/20/16 13:00 06/21/16 09:28 Ondansetron HCl (Zofran Inj) 4 mg Q6H PRN IV NAUSEA OR VOMITING 06/20/16 09:30 Docusate Sodium (Colace) 100 mg BID PO 06/20/16 21:00 06/21/16 09:28 Bisacodyl (Dulcolax Ec) 10 mg DAILY PRN PO CONSTIPATION 06/20/16 09:30 Acetaminophen/ Hydrocodone Bitart ([place] 10-325 Mg) 1 tab Q4H PRN PO PAIN 1-10 06/21/16 09:15 Enoxaparin Sodium (Lovenox Inj) 40 mg Q24H SQ 06/21/16 11:00 06/21/16 11:20 (Marcelle Britton) Medical Decision Making MDM Remarks 81 y/o female s/p L3-4, L4-L5 laminectomy, interbody arthrodesis using PEEK cage and autologous bone graft, instrumental fixation using transpedicular screws and rods 06/19/16 (Marcelle Britton) Plan Plan Remarks doing well, cont increased mobilization cont MANUFACTURING LEAD for pain control today, start oral pain medications prn IS every hour TLSO when out of bed, cont PT refusing TEDs and SCDs, start on sq lovenox for dvt prophylaxis JO drain remove tomorrow morning, dc gandhi anticipate dc home tomorrow with [facility] PT (Marcelle Britton) Attending Statement The exam, history, and the medical decision-making described in the above note were completed with the assistance of the mid-level provider. I reviewed and agree with the findings presented. I attest that I had a [id number] encounter with the patient on the same day, and personally performed and documented my assessment and findings in the medical record. (Tim Loo MD) Marcelle Britton Jun 21, 2016 11:44 Tim Loo MD Jun 21, 2016 18:58
--- NOTE | 2016-06-21 11:45 | HHI.FF ---
Face to Face Verification Diagnosis: (1) Status post lumbar spinal fusion Physical Therapy Order: Improve ambulation Home Health Nursing Order: Signs/symptoms of disease process Nursing assessment with vital signs I have seen patient Ila Stephenson on 06/21/16. My clinical findings support the need for the requested home health care services because: Deconditioned w/ increased weakness I certify that my clinical findings support that this patient is homebound because: Post-op weakness Marcelle Britton Jun 21, 2016 11:45
[2016-06-22] VITALS: BP 97/63; PULSE 94; RESP 20; TEMP 98; O2SAT 93
[2016-06-22 04:00] VITALS: BP 148/74; PULSE 94; RESP 20; TEMP 98; O2SAT 92
[2016-06-22] MEDS: PCA - TOTAL MG DILAUDID DELIVERED PER SHIFT SCH ×2 (06:00→14:00)
[2016-06-22 08:00] VITALS: BP 155/79; PULSE 92; RESP 18; TEMP 98.5; O2SAT 96
[2016-06-22] MEDS: SODIUM CHLOR 0.9% 1000 ML INJ 1,000 ML IV SCH ×2 (08:00→18:00)
[2016-06-22] MEDS: DOCUSATE SODIUM 100 MG CAP PO SCH (09:00)
[2016-06-22 10:06] VITALS: O2SAT 95
[2016-06-22] MEDS: LOSARTAN 25 MG TAB PO SCH (10:30)
[2016-06-22] MEDS: PREGABALIN 75 MG CAP PO SCH (10:30)
[2016-06-22] MEDS: PANTOPRAZOLE SODIUM 40 MG VIAL IVP SCH (10:32)
[2016-06-22] MEDS: BISACODYL EC 5 MG TABEC PO PRN ×2 (10:32→10:54)
[2016-06-22] MEDS: SODIUM CHLORIDE 0.9% FLUSH 5 ML FLUSH IVF SCH (10:32)
[2016-06-22] MEDS: ARTIFICIAL TEARS OPTH SOLN 15 ML BTL EACH EYE SCH ×3 (10:35→17:57)
[2016-06-22] MEDS: ENOXAPARIN SODIUM 40 MG/0.4 ML SYRINGE SQ SCH (10:46)
[2016-06-22] MEDS: ACETAMINOPHEN/HYDROcodone 325 MG/10 MG TAB PO PRN ×2 (10:47→17:56)
[2016-06-22 12:00] VITALS: BP 140/66; PULSE 90; RESP 18; TEMP 96.3; O2SAT 98
[2016-06-22] MEDS ORDERED: BISACODYL 10 MG SUPP RECTAL PRN (15:45)
[2016-06-22 16:00] VITALS: BP 143/65; PULSE 92; RESP 18; TEMP 98; O2SAT 90
--- NOTE | 2016-07-25 13:15 | HHI.DS ---
Discharge Summary Admission Date Jun 19, 2016 at 12:17 Discharge Date: Jun 22, 2016 Admitting Diagnosis s/p lumbar fusion (1) Status post lumbar spinal fusion ICD Code: Z98.1 Brief History Ms. Cheng is a 81 year-old female who presented with intractable mechanical back pain and purvi evidence of L4 and L5 lower extremity radiculopathy. She had spondylolisthesis and severe stenosis, and failed maximum nonsurgical management including multiple modalities of conservative treatment as well as pain management interventions by an interventional pain specialist. A surgical decompression and arthrodesis were indicated as a last resort. Imaging Last Impressions Chest X-Ray 06/20/16 0000 Signed Impressions: Service Date/Time: June 08:02 - CONCLUSION: 1. No focal consolidation or effusion. Minimal linear atelectasis or scarring at the left lung base. Vladimir Eden MD Lumbar Spine X-Ray 06/19/16 0000 Signed Impressions: Service Date/Time: Sunday, June 19, 2016 18:20 - CONCLUSION: Fluoroscopic images demonstrates placement of posterior rods and screws from L3-L5. Intervertebral disc devices. Sai Faustin MD Hospital Course Ms. Stephenson underwent a L3-4, L4-L5 laminectomy, interbody arthrodhesis using PEEK cage and autologous bone graft, L3-4, L4-L5 instrumental fixation using transpedicular screws and rods, L3-4, L4-L5 posterolateral fusion using autologous bone graft and demineralized bone matrix, microsurgical dissection on Jun 19, 2016. Her pain was managed with CASE REVIEWER pump that was subsequently weaned off. Her surgical pain improved and tolerable on oral pain medications. She was discharged home in stable conditions. Wound care and activity restrictions were discussed. Pt Condition on Discharge: Stable Discharge Disposition: Disch w/ Home Health Serv Discharge Instructions DIET: Follow Instructions for: Heart Healthy Diet ACTIVITIES You can perform: Weight Bearing As Yoav ADDITIONAL Activity Instructio: Avoid strenuous activities, heavy lifting, overhead activities, repetitive bending, twisting, pushing, pulling or any activities which might result in stress over the spine. Avoid situtation that will put at risk for falls. Use assistive device as needed for walking. Wear TLSO brace when out of bed. Follow up Referrals: Neurosurgery - 2 Weeks @ Neurosurgical - Dr Loo with Marcelle Britton New Medications: Hydrocodone-Acetaminophen (Lortab) 10-325 Mg Tab 1 TAB PO Q6H PRN PAIN #90 Ref 0 TAB Continued Medications: Aspirin DR (Aspirin 81) 81 Mg Tabdr 81 MG PO DAILY Ref 0 TAB Coenzyme Q10 (Ubidecarenone) (Co Q 10) 10 Mg Cap Losartan (Losartan) 25 Mg Tab 25 MG PO DAILY Blood Pressure Management #30 Ref 0 TAB Multiple Vitamins W/ Minerals (Multivitamin Adult) 1 Chw Chw Naproxen Sodium (Aleve) 220 Mg Cap Pregabalin (Lyrica) 75 Mg Cap 75 MG PO DAILY #30 Ref 0 CAP ([red rice]) Marcelle Britton Jul 25, 2016 13:15
== END 2016-06-22 18:29 | DRG 460 ==
LOC: HSDI 06-19 12:17 → N03A 06-19 23:33 → N06A 06-20 20:27
PROVIDERS: ADMIT Neurological Surgery; ATTEND Neurological Surgery
PROC: 0SB20ZZ Excision of Lumbar Vertebral Disc, Open Approach (ICD-10-PCS; 2016-06-19)
PROC: 4A11X4G Monitoring of Peripheral Nervous Electrical Activity, Intraoperative, External Approach (ICD-10-PCS; 2016-06-19)
PROC: 0SG10AJ Fusion of 2 or more Lumbar Vertebral Joints with Interbody Fusion Device, Posterior Approach, Anterior Column, Open Approach (ICD-10-PCS; principal; 2016-06-19 14:21)
DX: M43.16 Spondylolisthesis, lumbar region (principal); G62.9 Polyneuropathy, unspecified; R06.89 Other abnormalities of breathing; D64.9 Anemia, unspecified; J30.9 Allergic rhinitis, unspecified; M51.36 Other intervertebral disc degeneration, lumbar region; M54.16 Radiculopathy, lumbar region; M48.06 Spinal stenosis, lumbar region; I10 Essential (primary) hypertension; D72.829 Elevated white blood cell count, unspecified; Z86.73 Personal history of transient ischemic attack (TIA), and cerebral infarction without residual deficits; Z85.828 Personal history of other malignant neoplasm of skin; Z87.891 Personal history of nicotine dependence; Z88.1 Allergy status to other antibiotic agents
CPT/HCPCS: 36430; 71010; 72100; 76000; 80048; 82805; 84155; 85014; 85018; 85025; 85027; 86850; 86900; 86901; 86920; 87641; 94150; 94664; C1713; C9113; J0131; J0610; J0690; J1170; J1580; J1650; J2250; J2370; J2405; J2710; J3010; J3370; J3480; J7030; J7040; J7050; J7120; J7613; L0200; L0484; P9016